=== PATIENT | female | born 1995 | race Caucasian/White ===

== ENCOUNTER 2017-12-07 12:54 | Emergency (ER) | payer OTHER ==
[2017-12-07] MEDS: DIPHTH,PERTUSS(ACELL),TET TOX 0.5 ML DISP.SYRIN. VAX IM (13:27)
[2017-12-07] MEDS ORDERED: NEOMY/BACITR/POLYMYXIN OINT PACKET. TP (13:30)
== END 2017-12-07 13:58 | disposition home or self-care (01) ==
LOC: ER 12:54
DX: W27.4XXA Contact with kitchen utensil, initial encounter (principal); S61.211A Laceration without foreign body of left index finger without damage to nail, initial encounter; Y93.G3 Activity, cooking and baking; Y99.8 Other external cause status; Y92.89 Other specified places as the place of occurrence of the external cause
CPT/HCPCS: 90471; 90715; 99283-25